=== PATIENT | male | born 1940 | race Caucasian/White ===

== ENCOUNTER 2016-10-04 08:41 | Emergency (ER) | payer MEDICARE, OTHER, BC ==
[2016-10-04 09:09] VITALS: BP 165/78
--- NOTE | 2016-10-04 09:33 | EDM.PDOC ---
ED HPI ENT - General Chief Complaint: ENT Problem Stated Complaint: SINUS INFECTION Time Seen by Provider: 10/04/16 09:33 Source: Reports: Patient History Limitations: Reports: No limitations - History of Present Illness INITIAL COMMENTS - FREE TEXT/NARRATIVE: pt arrived with ahistory of have a flu like illness about 1 month ago. The pt is presently blowing out colored sputum. She is feeling plugged in the rt ear particularly. He is not running a fever. Timing/Duration: Reports: Day(s):, Getting worse Location: Reports: right Ear, left Ear Quality: Reports: Other (pt hs pressure in the sinuses particularly on the rt. ) Associated symptoms: Reports: denies other symptoms - Related Data Allergies/ADRs: Allergies Allergy/AdvReac Type Severity Reaction Status Date / Time No Known Allergies Allergy Verified 10/04/16 08:56 Home Meds: Home Meds Aspirin [Halfprin] 1 tab PO DAILY 10/04/16 [History] Fluticasone Propionate [Flonase] 2 spray NASBOTH DAILY 10/04/16 [History] Lisinopril [Prinivil] 20 mg PO DAILY 10/04/16 [History] Metoprolol Tartrate [Metoprolol Tartrate] 25 mg PO DAILY 10/04/16 [History] Omeprazole 1 tab PO DAILY 10/04/16 [History] Simvastatin [Simvastatin] 20 mg PO DAILY 10/04/16 [History] amLODIPine Besylate [Amlodipine Besylate] 10 mg PO DAILY 10/04/16 [History] Past Medical History HEENT History: Reports: Cataract, Sinusitis Cardiovascular History: Reports: High cholesterol, Hypertension Genitourinary History: Reports: Prostate disorder Musculoskeletal History: Reports: Fracture Other Musculoskeletal History: screws in right great toe Oncologic (Cancer) History: Reports: Prostate - Past Surgical History HEENT Surgical History: Reports: Cataract surgery Cardiovascular Surgical History: Reports: Coronary artery bypass Musculoskeletal Surgical History: Reports: Knee replacement Other Musculoskeletal Surgeries/Procedures:: bilateral knee replacement Social & Family History - Tobacco Use Smoking Status *Q: Former Smoker Years of Tobacco use: 12 Packs/Tins Daily: 0.5 Used Tobacco, but Quit: Yes Month Tobacco Last Used: may Second Hand Smoke Exposure: Yes - Caffeine Use Caffeine Use: Reports: Coffee - Recreational Drug Use Recreational Drug Use: No ED ROS ENT - Review of Systems Review Of Systems: See Below Constitutional: Reports: no symptoms HEENT: Reports: Other ( rt ear particularly feels plugged) Respiratory: Reports: No Symptoms Cardiovascular: Reports: No symptoms Endocrine: Reports: no symptoms GI/Abdominal: Reports: No symptoms : Reports: no symptoms Musculoskeletal: Reports: no symptoms Skin: Reports: no symptoms Neurological: Reports: No Symptoms ED EXAM, ENT - Physical Exam Exam: See Below Text/Narrative:: pt arrived with plugging of his rt ear and pressure in the rt sinus. He does not have a fever. Exam Limited By: No limitations General Appearance: alert, anxious, mild distress Ears: other (both drums are slightly red and there is fluid behind them. ) Nose: normal inspection Mouth/Throat: Normal inspection Head: atraumatic Neck: normal inspection Respiratory/Chest: no respiratory distress Cardiovascular: regular rate, rhythm GI/Abdominal: soft, non tender Rectal (Males) Exam: Deferred Back: normal inspection Extremities: normal inspection Neurological: alert, oriented, normal cognition Course - Vital Signs Last Recorded V/S: Last Vital Signs Temp 36.3 C 10/04/16 09:20 Pulse 65 10/04/16 09:20 Resp 16 10/04/16 09:20 BP 165/78 H 10/04/16 09:20 Pulse Ox 96 10/04/16 09:20 Departure - Departure Time of Disposition: 09:31 Disposition: Home, Self-Care 01 Condition: fair Clinical Impression: Sinusitis, Serous otitis media Referrals: Abram Moore MD [Primary Care Provider] - Forms: ED Department Discharge Care Plan Goals: cool mist humidifier, push fluids, zithromax 250 2 tabs now and 1 tab for 7 days. Use probiotics or yogurt while on antibiotics
== END 2016-10-04 09:49 | disposition home or self-care (01) ==
LOC: JP.ED 08:41
DX: J32.9 Chronic sinusitis, unspecified (principal); H65.93 Unspecified nonsuppurative otitis media, bilateral; I10 Essential (primary) hypertension; E78.00 Pure hypercholesterolemia, unspecified; Z85.46 Personal history of malignant neoplasm of prostate; Z98.49 Cataract extraction status, unspecified eye; Z95.1 Presence of aortocoronary bypass graft; Z96.651 Presence of right artificial knee joint; Z96.652 Presence of left artificial knee joint; Z87.891 Personal history of nicotine dependence; Z79.82 Long term (current) use of aspirin; Z79.899 Other long term (current) drug therapy
CPT/HCPCS: 99283